=== PATIENT | female | born 1985 | race Caucasian/White ===

== ENCOUNTER 2018-11-02 16:01 | Emergency (ER) | payer SELFPAY ==
--- NOTE | 2018-11-02 16:30 | ER Document Report ---
ED General - General Chief Complaint: Shortness Of Breath Stated Complaint: DIFFICULTY BREATHING Time Seen by Provider: 11/02/18 16:07 Mode of Arrival: Ambulatory Information source: Patient Notes: 33-year-old female with depression, anxiety, hypertension, hypothyroidism and a [id number] smoking history presents with complaint of cough and shortness of breath for 3 weeks with worsening over the last 3 days. Patient states that she has had a persistent nonproductive cough. She admits to chills, sweats. Patient has associated headache with coughing only. She describes chest tightness. She denies history of PE, DVT, recent travel, recent surgery, calf swelling, estrogen use, cancer history. Patient did receive a DuoNeb and 4 albuterol treatments prior to arrival as well as Solu-Medrol. She states that she feels much better now. She states she was not able to speak initially. TRAVEL OUTSIDE OF THE [place] IN LAST 30 DAYS: No - HPI Onset: Other Onset/Duration: Gradual, Persistent, Worse Quality of pain: Burning Severity: Mild Associated symptoms: Body/muscle aches, Chest pain - With coughing only, Productive cough, Headache - With coughing only, Sinus pain/drainage, Shortness of breath. denies: Fever, Hurts to breath, Leg swelling, Nausea, Vomiting Exacerbated by: Coughing Relieved by: Denies Similar symptoms previously: Yes Recently seen / treated by doctor: No - Related Data Allergies/Adverse Reactions: No Known Allergies Allergy (Unverified 01/26/11 11:26) Past Medical History - General Information source: Patient, [facility] Records - Social History Smoking Status: Current Every Day Smoker Cigarette use (# per day): Yes - 10 Smoking Education Provided: Yes - Smoking cessation counseling was provided for 4 minutes at the bedside Frequency of alcohol use: Occasional Drug Abuse: None Lives with: Spouse/Significant other Family History: Reviewed & Not Pertinent Patient has suicidal ideation: No Patient has homicidal ideation: No Endocrine Medical History: Reports: Hx Hypothyroidism Past Surgical History: Reports: Hx Section - x2 - Immunizations Hx Diphtheria, Pertussis, Tetanus Vaccination: Yes Review of Systems - Review of Systems Notes: REVIEW OF SYSTEMS: CONSTITUTIONAL : Denies fever, chills, or sweats. Denies recent illness. Denies weight loss, recent hospitalizations. EENT: Denies visual changes, eye pain. Denies sore throat, oral lesions, difficulty swallowing. CARDIOVASCULAR: Denies palpitations. Denies lower extremity edema. RESPIRATORY: + Cough, shortness of breath, wheezing. GASTROINTESTINAL: Denies abdominal pain or distention. Denies nausea, vomit ing, or diarrhea. Denies blood in vomitus, stools, or per rectum. Denies black, tarry stools. Denies constipation. GENITOURINARY: Denies difficulty urinating, painful urination, frequency, bloo d in urine, or vaginal discharge. MUSCULOSKELETAL: Denies back or neck pain or stiffness. Denies joint pain or swelling. SKIN: Denies rash, lesions or sores. HEMATOLOGIC : Denies easy bruising or bleeding. LYMPHATIC: Denies swollen glands. NEUROLOGICAL: Denies confusion or altered mental status. Denies loss of consciousness. Denies dizziness or lightheadedness. Denies weakness or par alysis. Denies problems difficulty with ambulation, slurred speech. Denies sensory loss, numbness, or tingling. Denies seizures. PSYCHIATRIC: Denies anxiety or stress. Denies depression, suicidal ideation, or homicidal ideation. Denies visual or auditory hallucinations. Physical Exam - Vital signs Vitals: Temp Pulse Resp BP Pulse Ox 98.5 F 90 15 135/96 H 94 11/02/18 16:07 11/02/18 16:07 11/02/18 16:07 11/02/18 16:07 11/02/18 16:07 - Notes Notes: PHYSICAL EXAMINATION: GENERAL: Well-appearing, well-nourished and in no acute distress. HEAD: Atraumatic, normocephalic. EYES: Pupils equal round and reactive to light, extraocular movements intact, conjunctiva are normal. ENT: Nares patent, oropharynx clear without exudates. Moist mucous membranes. NECK: Normal range of motion, supple without lymphadenopathy LUNGS: Diffuse wheezing in all lung prasad. No accessory muscle use, able to speak in full sentences. No hypoxia. Reports improvement after receiving breathing treatments. HEART: Regular rate and rhythm without murmurs ABDOMEN: Soft, nontender, nondistended abdomen. No guarding, no rebound. No masses appreciated. Female : deferred Musculoskeletal: Normal range of motion, no pitting or edema. No cyanosis. NEUROLOGICAL: Cranial nerves grossly intact. Normal speech, normal gait. Normal sensory, motor exams PSYCH: Normal mood, normal affect. SKIN: Warm, Dry, normal turgor, no rashes or lesions noted. Course - Re-evaluation Re-evalutation: 11/02/18 23:44 Chest X-Ray 11/02/18 16:23 IMPRESSION: NO SIGNIFICANT RADIOGRAPHIC FINDING IN THE CHEST. Temp Pulse Resp BP Pulse Ox 98.4 F 84 15 130/83 H 95 11/02/18 17:53 11/02/18 17:53 11/02/18 17:53 11/02/18 17:53 11/02/18 17:53 33-year-old female with a 20+ years smoking history presents with 3 weeks of cough and shortness of breath that worsened over the last 3 days. Patient states that just prior to arrival she became very short of breath unable to speak in full sentences which prompted her to call EMS. Prior to arrival patient received a DuoNeb and 3 albuterol treatments as well as Solu-Medrol. Upon my exam patient states that she is feeling much better. Lung exam is significant for diffuse wheezing. Patient is not retracting, hypoxic or tachycardic. She is in no acute distress. Previous medical records and nursing notes reviewed. Chest x-ray obtained and showed no significant findings. Patient has undiagnosed COPD based on smoking history and exam. Because of patient's prolonged cough, recent increase in sputum production I will place patient on doxycycline, prednisone. And albuterol inhaler was administered to the patient. Smoking cessation advised. Patient was evaluated and treated as appropriate for the patient's presenting symptoms and complaint, with consideration of any critical or life threatening conditions that may be associated with their obtained history and exam as noted above. All results were discussed with patient. Patient provided the opportunity to ask questions, and express concerns. Patient was educated on treatments based on their presumed diagnosis as noted above. At this time we will discharge the patient with return precautions and follow-up recommendations. Verbal discharge instructions given a the bedside. Medication warnings reviewed. Patient is in agreement with this plan and has verbalized understanding of return precautions. After careful consideration I feel that that patient can be safely discharged from the emergency department, they were advised to followup with a primary care physician in 2-3 days. Dictation on this chart was performed using voice recognition software and may result in unintended grammatical, spelling, syntax or errors. 11/03/18 00:02 - Vital Signs Vital signs: Temp Pulse Resp BP Pulse Ox 98.4 F 84 15 130/83 H 95 11/02/18 17:53 11/02/18 17:53 11/02/18 17:53 11/02/18 17:53 11/02/18 17:53 - Diagnostic Test Radiology reviewed: Image reviewed, Reports reviewed Discharge - Discharge Clinical Impression: Bronchitis, COPD exacerbation, Tobacco use Hypertension Qualifiers: Hypertension type: unspecified Qualified Code(s): I10 - Essential (primary) hypertension Condition: Good Disposition: HOME, SELF-CARE Instructions: Bronchitis With Bronchospasm (Wheezing) ([facility]) Additional Instructions: You were seen for symptoms most consistent with bronchitis. This can take up to 12 weeks to fully resolve. This is generally due to a viral infection. Please follow-up with your primary doctor in the next 2-3 days. Return if you develop worsening cough, vomiting, fever >100.4, pass out, begin coughing blood, or have any other symptoms that are concerning to you. Please use the medications prescribed today as directed. Prescriptions: Chlorpheniramine/Dextromethorp [Coricidin Hbp Cough & Cold Tab] 1 each PO Q12H #24 tablet Doxycycline Hyclate 100 mg PO BID #14 capsule Prednisone [Deltasone 20 mg Tablet] 2 tab PO DAILY 5 Days #10 tablet Forms: Smoking Cessation Education, Elevated Blood Pressure Referrals: MARVEL LUGO MD [NO LOCAL MD] - Follow up as needed
--- NOTE | 2018-11-02 17:10 | RADIOLOGY REPORT (SQ) ---
EXAM DESCRIPTION: CHEST 2 VIEWS COMPLETED DATE/TIME: 11/02/2018 4:55 pm REASON FOR STUDY: Short of breath COMPARISON: 2015. TECHNIQUE: Frontal and lateral radiographic views of the chest acquired. NUMBER OF VIEWS: Two view. LIMITATIONS: None. FINDINGS: LUNGS AND PLEURA: No opacities, masses or pneumothorax. No pleural effusion. MEDIASTINUM AND HILAR STRUCTURES: No masses or contour abnormalities. HEART AND VASCULAR STRUCTURES: Heart normal size. No evidence for failure. BONES: No acute findings. HARDWARE: None in the chest. OTHER: No other significant finding. IMPRESSION: NO SIGNIFICANT RADIOGRAPHIC FINDING IN THE CHEST. TECHNICAL DOCUMENTATION: JOB ID: [id number] [employer]- All Rights Reserved Reading location - IP/workstation name: [email or web address]
[2018-11-02] MEDS ORDERED: ALBUTEROL SULFATE HFA (90 MCG/PUFF) 8 GM MDI (1 MDI/ER DISP) IH PRN (17:30)
[2018-11-02] MEDS ORDERED: DOXYCYCLINE HYCLATE 100 MG TABLET PO ONE (17:36)
[2018-11-02 17:59] VITALS: BP 130/83
== END 2018-11-02 17:53 | disposition home or self-care (01) ==
LOC: ER 16:01
DX: J44.1 Chronic obstructive pulmonary disease with (acute) exacerbation (principal); J40 Bronchitis, not specified as acute or chronic; R06.02 Shortness of breath; R05 Cough; I10 Essential (primary) hypertension; M79.10 Myalgia, unspecified site; R68.83 Chills (without fever); R61 Generalized hyperhidrosis; R51 Headache; R07.89 Other chest pain; J34.89 Other specified disorders of nose and nasal sinuses; F17.210 Nicotine dependence, cigarettes, uncomplicated; Z71.6 Tobacco abuse counseling
CPT/HCPCS: 99406; 99285; 71046; J3490

== ENCOUNTER 2018-11-22 18:03 | Inpatient (IN) | payer SELFPAY ==
[2018-11-22] MEDS ORDERED: IPRATROPIUM/ALBUTEROL 0.5-2.5 MG/3 ML AMPUL NEB ONE (18:43)
[2018-11-22] MEDS ORDERED: METHYLPREDNISOLONE INJ 125 MG/2 ML SDV IV ONE (18:43)
[2018-11-22] MEDS ORDERED: NORMAL SALINE 1000 ML 1,000 ML IV ONE (18:43)
--- NOTE | 2018-11-22 18:56 | ER Document Report ---
ED General - General Chief Complaint: Breathing Difficulty Stated Complaint: DIFFICULTY BREATHING Time Seen by Provider: 11/22/18 18:20 Mode of Arrival: Ambulatory Information source: Patient TRAVEL OUTSIDE OF THE [place] IN LAST 30 DAYS: No - HPI Patient complains to provider of: Shortness of breath Onset: Other - 33-year-old female that presents for evaluation of shortness of breath which she has had for the last several weeks she notes she was seen for previously treated with steroids as well as an antibiotic with a slight imp rovement in her symptoms for 3 days and then much worsening of her symptoms thereafter. Nothing seemed to make it better since then his pain getting worse with time. She never had anything like this in the past, does endorse some chest tightness associated with it, denies any abdominal pain, diarrhea constipation dysuria or emesis. Does not believe that she could be . Is an everyday smoker but has smoked much less over the last 3 weeks. - Related Data Allergies/Adverse Reactions: No Known Allergies Allergy (Unverified 01/26/11 11:26) Past Medical History - General Information source: Patient - Social History Smoking Status: Current Every Day Smoker Frequency of alcohol use: None Drug Abuse: None Family History: Reviewed & Not Pertinent Patient has suicidal ideation: No Patient has homicidal ideation: No Endocrine Medical History: Reports: Hx Hypothyroidism Renal/ Medical History: Denies: Hx Peritoneal Dialysis Psychiatric Medical History: Reports: Hx Depression Past Surgical History: Reports: Hx Section - x2 - Immunizations Hx Diphtheria, Pertussis, Tetanus Vaccination: Yes Review of Systems - Review of Systems -: Yes All other systems reviewed and negative Physical Exam - Vital signs Vitals: Temp Resp BP Pulse Ox 97.7 F 16 129/96 H 89 L 11/22/18 18:11 11/22/18 18:11 11/22/18 18:11 11/22/18 18:11 - General General appearance: Alert, Anxious In distress: Mild - HEENT Head: Normocephalic Eyes: Normal Conjunctiva: Normal Cornea: Normal Extraocular movements intact: Yes Eyelashes: Normal Pupils: PERRL - Respiratory Respiratory status: Tachypnea Chest status: Nontender Breath sounds: Wheezing Chest palpation: Normal - Cardiovascular Rhythm: Regular Heart sounds: Normal auscultation - Abdominal Inspection: Normal Distension: No distension Bowel sounds: Normal Tenderness: Nontender Organomegaly: No organomegaly - Back Back: Normal, Nontender - Extremities General upper extremity: Normal inspection, Nontender, Normal color, Normal ROM, Normal temperature General lower extremity: Normal inspection, Nontender, Normal color, Normal ROM, Normal temperature, Normal weight bearing. No: Xavi's sign - Neurological Neuro grossly intact: Yes Cognition: Normal Orientation: AAOx4 Acme Coma Scale Eye Opening: Spontaneous Eric Coma Scale Verbal: Oriented Reic Coma Scale Motor: Obeys Commands Acme Coma Scale Total: 15 Speech: Normal Motor strength normal: LUE, RUE, LLE, RLE Sensory: Normal - Psychological Associated symptoms: Normal affect, Normal mood Course - Re-evaluation Re-evalutation: 11/22/18 21:53 33-year-old woman with wheezing who presents for the second time in the last 3 weeks. On arrival she was hypoxic with marked tachypnea, she was placed on nasal cannula with an improvement in her oxygen saturation of 92%. She continued to have wheezing and shortness of breath and was started on a steroid as well as given a nebulization, she continued to demonstrate some tachypnea and wheezing thereafter. A broad workup was undertaken including x-ray, EKG, troponin. Patient with no obvious pneumonia on x-ray. Patient with no obvious evidence to suggest pulmonary embolism elsewhere. Venous blood gas does demonstrate acidosis with hypercarbia. Patient has an elevated bicarb suggestive of a chronic retention over the last 3 weeks probably for this patient in addition to an acute exacerbation. We will initiate treatment with magnesium for persistent wheezing another nebulization and will obtain a CTA of the chest for possible chronic thromboembolic disease and underlying cause of her worsening shortness of breath . She continues to require 2 L of nasal cannula to maintain an appropriate saturation. Have contacted the on-call hospitalist Dr. Castano after an extensive discussion with the patient and her mother about treatment options. They would prefer to stay. I do believe that this patient would benefit from inpatient observation monitoring reassessment administration of nebulization and steroids. We will plan to give patient a dose of her home propranolol as well as Celexa and Xanax. - Vital Signs Vital signs: Temp Pulse Resp BP Pulse Ox 97.7 F 12 128/79 H 93 11/22/18 18:11 11/22/18 22:00 11/22/18 21:01 11/22/18 22:00 - Laboratory Result Diagrams: 11/22/18 18:30 11/22/18 18:30 Laboratory results interpreted by me: 11/22/18 11/22/18 11/22/18 18:30 18:30 19:50 Eosinophils % 12.9 H Absolute Eosinophils 1.2 H VBG pH 7.27 L VBG pCO2 78.4 H* VBG HCO3 35.0 H Carbon Dioxide 33 H Glucose 124 H Discharge - Discharge Clinical Impression: Wheezing, Shortness of breath, Hypoxia, Hypercarbia Condition: Stable Disposition: ADMITTED INPATIENT Admitting Provider: Hospitalist Unit Admitted: Telemetry
--- NOTE | 2018-11-22 19:03 | RADIOLOGY REPORT (SQ) ---
EXAM DESCRIPTION: CHEST SINGLE VIEW COMPLETED DATE/TIME: 11/22/2018 6:55 pm REASON FOR STUDY: Difficulty breathing COMPARISON: 11/02/2018 EXAM PARAMETERS: NUMBER OF VIEWS: One view. TECHNIQUE: Single frontal radiographic view of the chest acquired. RADIATION DOSE: NA LIMITATIONS: None. FINDINGS: LUNGS AND PLEURA: No opacities, masses or pneumothorax. No pleural effusion. MEDIASTINUM AND HILAR STRUCTURES: No masses. Contour normal. HEART AND VASCULAR STRUCTURES: Heart normal in size. Normal vasculature. BONES: No acute findings. HARDWARE: None in the chest. OTHER: No other significant finding. IMPRESSION: NO ACUTE RADIOGRAPHIC FINDING IN THE CHEST. TECHNICAL DOCUMENTATION: JOB ID: [id number] [employer]- All Rights Reserved Reading location - IP/workstation name: [email or web address]
[2018-11-22 19:19] LABS: ABSOLUTE BASOPHILS # (AUTO) 0.1 10^3/uL (0.0-0.2); ABSOLUTE EOSINOPHILS # (AUTO) 1.2 10^3/uL (0.0-0.6); ABSOLUTE LYMPHOCYTES (AUTO) 2.4 10^3/uL (0.5-4.7); ABSOLUTE MONOCYTES (AUTO) 0.5 10^3/uL (0.1-1.4); ABSOLUTE NEUT (AUTO) 4.8 10^3/uL (1.7-8.2); BASOPHILS % (AUTO) 0.8 % (0-2); EOSINOPHILS % (AUTO) 12.9 % (0-6); HEMATOCRIT 42.4 % (36.0-47.0); HEMOGLOBIN 14.2 g/dL (12.0-15.5); MEAN CORPUSCULAR HEMOGLOBIN 30.1 pg (27.0-33.4); MEAN CORPUSCULAR HGB CONC 33.5 g/dL (32.0-36.0); MEAN CORPUSCULAR VOLUME 90 fl (80-97); MONOCYTES % (AUTO) 5.6 % (3-13); PLATELET COUNT 297 10^3/uL (150-450); RED BLOOD COUNT 4.72 10^6/uL (3.72-5.28); RED CELL DISTRIBUTION WIDTH 13.5 % (11.5-14.0); SEGMENTED NEUTROPHILS % (AUTO) 53.7 % (42-78); TOTAL CELLS COUNTED % (AUTO) 100 %; WHITE BLOOD COUNT 8.9 10^3/uL (4.0-10.5)
[2018-11-22 19:22] LABS: ALANINE AMINOTRANSFERASE 24 U/L (9-52); ALKALINE PHOSPHATASE 74 U/L (38-126); ANION GAP 5 (5-19); ASPARTATE AMINO TRANSFERASE 18 U/L (14-36); BILIRUBIN,DIRECT 0.4 mg/dL (0.0-0.4); BILIRUBIN,TOTAL 0.4 mg/dL (0.2-1.3); BLOOD UREA NITROGEN 12 mg/dL (7-20); CALCIUM 8.6 mg/dL (8.4-10.2); CARBON DIOXIDE 33 mmol/L (22-30); CHLORIDE 100 mmol/L (98-107); CREATINE KINASE 39 U/L (30-135); GLUCOSE 124 mg/dL (75-110); POTASSIUM 4.1 mmol/L (3.6-5.0); TOTAL PROTEIN 6.7 g/dL (6.3-8.2)
[2018-11-22 19:33] LABS: NT PRO BNP 21 pg/mL (<125)
[2018-11-22 19:40] LABS: TROPONIN I < 0.012 ng/mL
[2018-11-22 20:00] LABS: VENOUS BLOOD BASE EXCESS 5.1 mmol/L; VENOUS BLOOD PH 7.27 (7.30-7.42)
[2018-11-22 20:04] LABS: VENOUS BLOOD PCO2 78.4 mmHg (35-63)
[2018-11-22] MEDS ORDERED: ALBUTEROL SULFATE 0.083% NEB 2.5 MG/3 ML AMPUL NEB ONE (21:12)
--- NOTE | 2018-11-22 21:36 | EKG REPORT ---
SEVERITY:- BORDERLINE ECG - SINUS TACHYCARDIA BORDERLINE T ABNORMALITIES, INFERIOR LEADS : Confirmed by: Romina Gomez MD 22-Nov-2018 21:35:32
[2018-11-22] MEDS: MAGNESIUM SULFATE/D5W 1 GM/100 ML RTUPB IV SCH ×2 (21:38→22:01)
--- NOTE | 2018-11-22 22:52 | RADIOLOGY REPORT (SQ) ---
EXAM DESCRIPTION: CT CHEST ANGIOGRAPHY WITHOUT THEN WITH IV CONTRAST, three-dimensional reconstructions COMPLETED DATE/TME: 11/22/2018 21:09 CLINICAL HISTORY: 33 years, Female, diff breathing, concern for PE This exam was performed according to our departmental dose-optimization program which includes automated exposure control, adjustment of the mA and/or kVp according to patient size and/or use of iterative reconstruction technique where applicable. FINDINGS: Pulmonary arteries are well opacified. No significant filling defects in the pulmonary arterial tree to suggest acute pulmonary embolism. Aorta is within normal limits with no aneurysm or dissection. No significant mediastinal, hilar or axillary lymphadenopathy. No pleural or pericardial effusions. Visualized upper abdominal organs are within normal limits. Evaluation of the lung parenchyma demonstrates trachea and major airways to be patent. No suspicious lung nodules or masses. No consolidations to suggest pneumonia. Minimally displaced left posterior 11th rib fracture. IMPRESSION: Left 11th rib fracture. No pneumothorax. No pulmonary embolism.
[2018-11-22] MEDS ORDERED: PROPRANOLOL HCL 10 MG TABLET PO ONE (23:15)
[2018-11-22] MEDS ORDERED: CITALOPRAM HYDROBROMIDE 20 MG TABLET PO ONE (23:15)
[2018-11-22] MEDS ORDERED: ALPRAZOLAM 0.5 MG TABLET PO ONE (23:15)
[2018-11-22] MEDS ORDERED: ONDANSETRON HCL INJ/PF 4 MG/2 ML SDV IV PRN (23:50)
[2018-11-22] MEDS ORDERED: ONDANSETRON 4 MG TAB.RAPDIS PO PRN (23:50)
[2018-11-22] MEDS ORDERED: MAG HYDROX/AL HYDROX/SIMETH SUSP 30 ML UDCUP PO PRN (23:50)
[2018-11-22] MEDS ORDERED: MAGNESIUM HYDROXIDE SUSP 30 ML UDCUP PO PRN (23:50)
[2018-11-22] MEDS ORDERED: NORMAL SALINE 1000 ML 1,000 ML IV PRN (23:50)
[2018-11-22] MEDS ORDERED: PROPRANOLOL HCL 10 MG TABLET ONE (23:51)
[2018-11-22] MEDS ORDERED: ACETAMINOPHEN 325 MG TABLET PO PRN (23:56)
[2018-11-22] MEDS ORDERED: NALBUPHINE HCL INJ 10 MG/1 ML AMPULE IV PRN (23:56)
[2018-11-22] MEDS ORDERED: ALBUTEROL SULFATE 0.083% NEB 2.5 MG/3 ML AMPUL NEB PRN (23:56)
[2018-11-22] MEDS ORDERED: NICOTINE 21 MG/24 HR PATCH.TD24 TD PRN (23:56)
[2018-11-22] MEDS ORDERED: GUAIFENESIN/D-METHORPHAN (200-20 MG) SYRUP 10 ML PO PRN (23:58)
[2018-11-23] MEDS ORDERED: METHYLPREDNISOLONE INJ 40 MG/1 ML SDV IV ONE (00:40)
--- NOTE | 2018-11-23 03:44 | PDOC H&P ---
History of Present Illness Admission Date/PCP: 11/22/18 23:44 Patient complains of: Dyspnea History of Present Illness: ROSALINA ANN is a 33 year old female who presented to the emergency room with acute onset dyspnea. She admits that she awoke from a nap on the late afternoon of the date of admission with severe dyspnea and wheezing. She admits to the associated nonproductive cough and moderate to severe intermittent sharp pains in her anterior chest on both sides. She further admits that she has been having respiratory difficulty for the last month or so with wheezing and dyspnea as well as the same nonproductive cough and chest pains. She was treated in this emergency room for these symptoms about 2 weeks ago. She did have resolution of her symptoms and had been feeling well for the last 2 or 3 days prior to this episode. She denies any other prior similar episodes and has not identified any aggravating or ameliorating factors for her dyspnea though she does admit that she had been smoking until approximately 3 weeks ago when she could no longer smoke because it irritated her airway. In the emergency room she was found to be hypoxic and to have severe wheezing with decreased air movement on physical exam. She was noted to be mildly hypercapnic on an initial venous blood gas. Her chest x-ray showed no acute pathology however she was noted to have an acute fracture of her left 11th rib on CTA evaluation. Because of her persistent hypoxia despite treatment in the emergency room she was admitted for further care. Past Medical History Cardiac Medical History: Denies: Coronary Artery Disease, DVT, Hyperlipidema, Hypertension, Pulmonary Embolism Pulmonary Medical History: Reports: Asthma, Chronic Obstructive Pulmonary Disease (COPD) Denies: Respiratory Failure EENT Medical History: Reports: None Neurological Medical History: Denies: Multiple Sclerosis, Seizures Endocrine Medical History: Reports: Hypothyroidism, Obesity Denies: Diabetes Mellitus Type 1, Diabetes Mellitus Type 2 Renal/ Medical History: Denies: Chronic Kidney Disease, Nephrolithiasis Malignancy Medical History: Reports: None GI Medical History: Denies: Cirrhosis, Hepatitis Musculoskeltal Medical History: Denies: Arthritis, Fibromyalgia Skin Medical History: Denies: Eczema, Psoriasis Psychiatric Medical History: Reports: Depression, Tobacco Dependency Denies: Alcohol Dependency, Substance Abuse Traumatic Medical History: Reports: None Hematology: Denies: Anemia, Bleeding Tendencies Infectious Medical History: Reports: None Past Surgical History Past Surgical History: Reports: Section - x2 Social History Smoking Status: Current Every Day Smoker - Advance Directive Resuscitation Status: Full Code Surrogate healthcare decision maker:: Mother Family History Family History: CAD, COPD, DM, Hypertension, Malignancy, Other - Chronic kidney disease Parental Family History Reviewed: Yes Children Family History Reviewed: No Sibling(s) Family History Reviewed.: Yes Medication/Allergy Home Medications: Hydrocodone Bit/Acetaminophen [Vicodin 5-500 mg Tablet] 1 - 2 tab PO ASDIR PRN #15 tablet 05/04/13 Ibuprofen [Motrin 800 Mg Tablet] 800 mg PO TID PRN #30 tablet 05/04/13 Hydrocodone/Acetaminophen [[place] 5-325 mg Tablet] 1 tab PO Q6 #10 tablet 12/27/15 Prednisone [Deltasone 20 mg Tablet] 3 tab PO DAILY 5 Days tablet 12/27/15 Chlorpheniramine/Dextromethorp [Coricidin Hbp Cough & Cold Tab] 1 each PO Q12H #24 tablet 11/02/18 Doxycycline Hyclate 100 mg PO BID #14 capsule 11/02/18 Prednisone [Deltasone 20 mg Tablet] 2 tab PO DAILY 5 Days #10 tablet 11/02/18 Allergies/Adverse Reactions: No Known Allergies Allergy (Unverified 01/26/11 11:26) Review of Systems Constitutional: ABSENT: chills, fever(s) Eyes: ABSENT: visual disturbances, other - Ocular pain Ears: ABSENT: hearing changes, other - Ear pain Nose, Mouth, and Throat: ABSENT: mouth pain, sore throat Cardiovascular: PRESENT: as per HPI, chest pain, dyspnea on exertion. ABSENT: edema, orthropnea, palpitations Respiratory: PRESENT: as per HPI, cough, dyspnea. ABSENT: hemoptysis, sputum Gastrointestinal: ABSENT: abdominal pain, constipation, diarrhea, dysphagia, nausea, vomiting Genitourinary: ABSENT: dysuria, hematuria Integumentary: ABSENT: pruritus, rash Neurological: ABSENT: confusion, convulsions, memory loss, tremor(s) Psychiatric: ABSENT: anxiety, depression Endocrine: ABSENT: cold intolerance, heat intolerance Hematologic/Lymphatic: ABSENT: easy bleeding, easy bruising Physical Exam Vital Signs: Temp Pulse Resp BP Pulse Ox 97.7 F 12 128/79 H 93 11/22/18 18:11 11/22/18 22:00 11/22/18 21:01 11/22/18 22:00 Intake & Output 11/20/18 11/21/18 11/22/18 23:59 23:59 23:59 Intake Total 1200 Balance 1200 Weight 141.521 kg General appearance: PRESENT: cooperative, mild distress - Secondary to wheezing and dyspnea, morbidly obese Head exam: PRESENT: atraumatic, normocephalic Eye exam: PRESENT: conjunctiva pink, EOMI. ABSENT: scleral icterus Ear exam: PRESENT: normal external ear exam. ABSENT: bleeding, drainage Mouth exam: PRESENT: dry mucosa, neck supple Neck exam: ABSENT: JVD, thyromegaly, tracheal deviation Respiratory exam: PRESENT: accessory muscle use - Moderate use of accessory musculature of breathing with increased work of breathing noted., decreased breath sounds - Moderately decreased breath sounds throughout all prasad with poor air movement noted, prolonged expiratory phas - Moderately prolonged expiratory phase noted throughout all prasad, symmetrical, wheezes - Expiratory wheezes present in all prasad. Cardiovascular exam: PRESENT: RRR. ABSENT: clicks, gallop, rubs Pulses: PRESENT: normal radial pulses, normal dorsalis pedis pul GI/Abdominal exam: PRESENT: normal bowel sounds, soft Rectal exam: PRESENT: deferred Extremities exam: ABSENT: joint swelling, pedal edema Musculoskeletal exam: PRESENT: full ROM, normal inspection Neurological exam: PRESENT: alert, oriented to person, oriented to place, oriented to time, oriented to situation, CN II-XII grossly intact. ABSENT: motor sensory deficit Psychiatric exam: PRESENT: appropriate affect, normal mood Skin exam: PRESENT: intact, pallor, warm. ABSENT: jaundice, rash, urticaria Results Laboratory Results: 11/22/18 18:30 11/22/18 18:30 11/22/18 11/22/18 11/22/18 18:30 18:30 19:50 WBC 8.9 RBC 4.72 Hgb 14.2 Hct 42.4 MCV 90 MCH 30.1 MCHC 33.5 RDW 13.5 Plt Count 297 Seg Neutrophils % 53.7 Lymphocytes % 27.0 Monocytes % 5.6 Eosinophils % 12.9 H Basophils % 0.8 Absolute Neutrophils 4.8 Absolute Lymphocytes 2.4 Absolute Monocytes 0.5 Absolute Eosinophils 1.2 H Absolute Basophils 0.1 VBG pH VBG pCO2 VBG HCO3 VBG Base Excess Sodium 138.0 Potassium 4.1 Chloride 100 Carbon Dioxide 33 H Anion Gap 5 BUN 12 Creatinine 0.77 Est GFR ( Amer) > 60 Est GFR (Non-Af Amer) > 60 Glucose 124 H Lactic Acid 1.0 Calcium 8.6 Total Bilirubin 0.4 AST 18 ALT 24 Alkaline Phosphatase 74 Total Protein 6.7 Albumin 4.0 11/22/18 19:50 WBC RBC Hgb Hct MCV MCH MCHC RDW Plt Count Seg Neutrophils % Lymphocytes % Monocytes % Eosinophils % Basophils % Absolute Neutrophils Absolute Lymphocytes Absolute Monocytes Absolute Eosinophils Absolute Basophils VBG pH 7.27 L VBG pCO2 78.4 H* VBG HCO3 35.0 H VBG Base Excess 5.1 Sodium Potassium Chloride Carbon Dioxide Anion Gap BUN Creatinine Est GFR ( Amer) Est GFR (Non-Af Amer) Glucose Lactic Acid Calcium Total Bilirubin AST ALT Alkaline Phosphatase Total Protein Albumin 11/22/18 11/22/18 18:30 18:30 Creatine Kinase 39 Troponin I < 0.012 NT-Pro-B Natriuret Pep 21 Impressions: Chest X-Ray 11/22/18 00:00 IMPRESSION: NO ACUTE RADIOGRAPHIC FINDING IN THE CHEST. Chest/Abdomen CTA 11/22/18 21:09 IMPRESSION: Left 11th rib fracture. No pneumothorax. No pulmonary embolism. Assessment & Plan - Diagnosis (1) Acute respiratory failure with hypoxia and hypercapnia Is this a current diagnosis for this admission?: Yes Plan: Patient will be treated with supplemental oxygen via nasal cannula and consideration of CPAP and/or BiPAP will be given if the patient's respiratory status declines. (2) Acute exacerbation of COPD with asthma Is this a current diagnosis for this admission?: Yes Plan: Patient be treated with an aggressive pulmonary toilet utilizing Xopenex, Atrovent, Pulmicort and albuterol nebulizers as well as intravenous Solu-Medrol steroid therapy. (3) Morbid obesity with BMI of 45.0-49.9, adult Is this a current diagnosis for this admission?: Yes Plan: Patient will be seen by dietitian for consultation to establish appropriate diet and lifestyle changes to help to improve her overall medical health. (4) Tobacco use disorder, moderate, in early remission, dependence Is this a current diagnosis for this admission?: Yes Plan: Smoking cessation is advised. Smoking cessation counseling is given. Nicotine replacement patch is available to the patient. - Time Time Spent: 30 to 50 Minutes Critical Time spent with patient: Less than 15 minutes Smoking Cessation Education: 3 to 10 minutes Medications reviewed and adjusted accordingly: Yes Anticipated discharge: Home - Inpatient Certification Medical Necessity: Significant Comorbidiites Make Outpatient Treatment Too Risky, Need Close Monitoring Due to Risk of Patient Decompensation, Need for Neb ulizer Therapy and Monitoring of Response, Risk of Complication if Not Cared For in Hospital
[2018-11-23] MEDS ORDERED: IPRATROPIUM BROMIDE 0.02% NEB 0.5 MG/2.5 ML AMPUL NEB SCH ×2 (04:00)
[2018-11-23] MEDS ORDERED: LEVALBUTEROL HCL NEB 1.25 MG/3 ML AMPUL NEB SCH (04:00)
[2018-11-23 04:57] LABS: ABSOLUTE MONOCYTES (AUTO) 0.1 10^3/uL (0.1-1.4); ABSOLUTE NEUT (AUTO) 7.2 10^3/uL (1.7-8.2); BASOPHILS % (AUTO) 0.3 % (0-2); EOSINOPHILS % (AUTO) 0.1 % (0-6); HEMATOCRIT 40.9 % (36.0-47.0); HEMOGLOBIN 13.9 g/dL (12.0-15.5); LYMPHOCYTES % (AUTO) 11.6 % (13-45); MEAN CORPUSCULAR HEMOGLOBIN 30.8 pg (27.0-33.4); MEAN CORPUSCULAR HGB CONC 34.1 g/dL (32.0-36.0); MEAN CORPUSCULAR VOLUME 91 fl (80-97); MONOCYTES % (AUTO) 0.9 % (3-13); PLATELET COUNT 296 10^3/uL (150-450); RED BLOOD COUNT 4.52 10^6/uL (3.72-5.28); RED CELL DISTRIBUTION WIDTH 13.5 % (11.5-14.0); SEGMENTED NEUTROPHILS % (AUTO) 87.1 % (42-78); TOTAL CELLS COUNTED % (AUTO) 100 %; WHITE BLOOD COUNT 8.3 10^3/uL (4.0-10.5)
[2018-11-23 05:15] LABS: ANION GAP 5 (5-19); BLOOD UREA NITROGEN 13 mg/dL (7-20); CARBON DIOXIDE 30 mmol/L (22-30); CHLORIDE 102 mmol/L (98-107); CHOLESTEROL 213.99 mg/dL (0-200); GLUCOSE 161 mg/dL (75-110); POTASSIUM 4.6 mmol/L (3.6-5.0); SODIUM 137.3 mmol/L (137-145); TRIGLYCERIDES 45 mg/dL (<150)
[2018-11-23 05:26] LABS: DIRECT LDL 135 mg/dL (<100)
[2018-11-23 05:31] LABS: FREE T3 2.32 pg/mL (2.77-5.27); FREE T4 (FREE THYROXINE) 0.4 ng/dL (0.78-2.19)
[2018-11-23 05:45] LABS: THYROID STIMULATING HORMONE 12.5 uIU/mL (0.47-4.68)
[2018-11-23] MEDS: HEPARIN SOD (PORCINE) 5,000 UNIT/ML 1 ML SYRINGE SUBCUT SCH ×3 (07:36→22:20)
[2018-11-23] MEDS: LEVALBUTEROL HCL NEB 1.25 MG/3 ML AMPUL NEB SCH ×2 (08:32→16:25)
[2018-11-23] MEDS: BUDESONIDE NEB 0.5 MG/2 ML AMPUL NEB SCH ×2 (08:32→19:26)
[2018-11-23] MEDS: IPRATROPIUM BROMIDE 0.02% NEB 0.5 MG/2.5 ML AMPUL NEB SCH ×2 (08:32→16:25)
[2018-11-23] MEDS: FAMOTIDINE 20 MG TABLET PO SCH ×2 (09:20→22:20)
[2018-11-23] MEDS: DOCUSATE SODIUM 100 MG CAPSULE PO SCH ×2 (09:20→17:46)
[2018-11-23] MEDS: ALPRAZOLAM 0.5 MG TABLET PO PRN ×2 (15:37→22:22)
[2018-11-23] MEDS ORDERED: OXYMETAZOLINE HCL 0.05% NASAL SPRAY 15 ML BOTTLE NASL PRN (17:11)
--- NOTE | 2018-11-23 17:25 | PDOC PROGRESS REPORT ---
Subjective Progress Note for:: 11/23/18 Subjective:: ROSALINA ANN is a 33 year old female who presented to the emergency room with acute onset dyspnea. She admits that she awoke from a nap on the late afternoon of the date of admission with severe dyspnea and wheezing. She admits to the associated nonproductive cough and moderate to severe intermittent sharp pains in her anterior chest on both sides. She further admits that she has been having respiratory difficulty for the last month or so with wheezing and dyspnea as well as the same nonproductive cough and chest pains. She was treated in this emergency room for these symptoms about 2 weeks ago. She did have resolution of her symptoms and had been feeling well for the last 2 or 3 days prior to this episode. She denies any other prior similar episodes and has not identified any aggravating or ameliorating factors for her dyspnea though she does admit that she had been smoking until approximately 3 weeks ago when she could no longer smoke because it irritated her airway. In the emergency room she was found to be hypoxic and to have severe wheezing with decreased air movement on physical exam. She was noted to be mildly hypercapnic on an initial venous blood gas. Her chest x-ray showed no acute pathology however she was noted to have an acute fracture of her left 11th rib on CTA evaluation. Because of her persistent hypoxia despite treatment in the emergency room she was admitted for further care. Patient is stating she is feeling better since admission however she gets short of breath when she exerts herself. She still having pleuritic chest pain stating that 3 weeks ago she had a hip fracture due to excessive coughing. She denies having any fever, chills, nausea, vomiting, diarrhea or constipation. She is a heavy smoker has been smoking for the last 3 years. Reason For Visit: ACUTE EXACERBATION OF COPD WITH ACUTE HYPOXIC Physical Exam Vital Signs: Temp Pulse Resp BP Pulse Ox 97.6 F 105 H 14 133/86 H 94 11/23/18 05:00 11/23/18 16:25 11/23/18 16:25 11/23/18 12:01 11/23/18 16:25 Intake & Output 11/22/18 11/23/18 11/24/18 06:59 06:59 06:59 Intake Total 1200 Balance 1200 Weight 141.521 kg General appearance: PRESENT: morbidly obese Head exam: PRESENT: atraumatic, normocephalic Respiratory exam: PRESENT: prolonged expiratory phas, wheezes Cardiovascular exam: PRESENT: RRR. ABSENT: diastolic murmur, rubs, systolic murmur GI/Abdominal exam: PRESENT: normal bowel sounds, soft. ABSENT: distended, guarding, mass, organolmegaly, rebound, tenderness Extremities exam: PRESENT: full ROM. ABSENT: calf tenderness, clubbing, pedal edema Neurological exam: PRESENT: alert, awake, oriented to person, oriented to place, oriented to time, oriented to situation, CN II-XII grossly intact. ABSENT: motor sensory deficit Psychiatric exam: PRESENT: anxious Results Laboratory Results: 11/23/18 04:40 11/23/18 04:40 11/22/18 11/22/18 11/22/18 18:30 18:30 19:50 WBC 8.9 RBC 4.72 Hgb 14.2 Hct 42.4 MCV 90 MCH 30.1 MCHC 33.5 RDW 13.5 Plt Count 297 Seg Neutrophils % 53.7 Lymphocytes % 27.0 Monocytes % 5.6 Eosinophils % 12.9 H Basophils % 0.8 Absolute Neutrophils 4.8 Absolute Lymphocytes 2.4 Absolute Monocytes 0.5 Absolute Eosinophils 1.2 H Absolute Basophils 0.1 VBG pH VBG pCO2 VBG HCO3 VBG Base Excess Sodium 138.0 Potassium 4.1 Chloride 100 Carbon Dioxide 33 H Anion Gap 5 BUN 12 Creatinine 0.77 Est GFR ( Amer) > 60 Est GFR (Non-Af Amer) > 60 Glucose 124 H Lactic Acid 1.0 Calcium 8.6 Magnesium Total Bilirubin 0.4 AST 18 ALT 24 Alkaline Phosphatase 74 Total Protein 6.7 Albumin 4.0 Triglycerides Cholesterol LDL Cholesterol Direct VLDL Cholesterol HDL Cholesterol TSH Free T4 Free T3 pg/mL 11/22/18 11/23/18 11/23/18 19:50 04:40 04:40 WBC 8.3 RBC 4.52 Hgb 13.9 Hct 40.9 MCV 91 MCH 30.8 MCHC 34.1 RDW 13.5 Plt Count 296 Seg Neutrophils % 87.1 H Lymphocytes % 11.6 L Monocytes % 0.9 L Eosinophils % 0.1 Basophils % 0.3 Absolute Neutrophils 7.2 Absolute Lymphocytes 1.0 Absolute Monocytes 0.1 Absolute Eosinophils 0.0 Absolute Basophils 0.0 VBG pH 7.27 L VBG pCO2 78.4 H* VBG HCO3 35.0 H VBG Base Excess 5.1 Sodium 137.3 Potassium 4.6 Chloride 102 Carbon Dioxide 30 Anion Gap 5 BUN 13 Creatinine 0.85 Est GFR ( Amer) > 60 Est GFR (Non-Af Amer) > 60 Glucose 161 H Lactic Acid Calcium 9.0 Magnesium 2.0 Total Bilirubin AST ALT Alkaline Phosphatase Total Protein Albumin Triglycerides 45 Cholesterol 213.99 H LDL Cholesterol Direct 135 H VLDL Cholesterol 9.0 L HDL Cholesterol 59 TSH Free T4 Free T3 pg/mL 11/23/18 04:40 WBC RBC Hgb Hct MCV MCH MCHC RDW Plt Count Seg Neutrophils % Lymphocytes % Monocytes % Eosinophils % Basophils % Absolute Neutrophils Absolute Lymphocytes Absolute Monocytes Absolute Eosinophils Absolute Basophils VBG pH VBG pCO2 VBG HCO3 VBG Base Excess Sodium Potassium Chloride Carbon Dioxide Anion Gap BUN Creatinine Est GFR ( Amer) Est GFR (Non-Af Amer) Glucose Lactic Acid Calcium Magnesium Total Bilirubin AST ALT Alkaline Phosphatase Total Protein Albumin Triglycerides Cholesterol LDL Cholesterol Direct VLDL Cholesterol HDL Cholesterol TSH 12.50 H Free T4 0.40 L Free T3 pg/mL 2.32 L 11/22/18 11/22/18 18:30 18:30 Creatine Kinase 39 Troponin I < 0.012 NT-Pro-B Natriuret Pep 21 Impressions: Chest X-Ray 11/22/18 00:00 IMPRESSION: NO ACUTE RADIOGRAPHIC FINDING IN THE CHEST. Chest/Abdomen CTA 11/22/18 21:09 IMPRESSION: Left 11th rib fracture. No pneumothorax. No pulmonary embolism. Assessment & Plan - Diagnosis (1) Acute respiratory failure with hypoxia and hypercapnia Is this a current diagnosis for this admission?: Yes Plan: Secondary to COPD/asthma exacerbation. Continue supplemental oxygen, nebs, IV steroids, BiPAP. (2) Acute exacerbation of COPD with asthma Is this a current diagnosis for this admission?: Yes Plan: Problem #1. Outpatient pulmonary follow-up. (3) Morbid obesity with BMI of 45.0-49.9, adult Is this a current diagnosis for this admission?: Yes Plan: Advised on diet and lifestyle modification. (4) Tobacco use disorder, moderate, in early remission, dependence Is this a current diagnosis for this admission?: Yes Plan: Advised on smoking cessation. Start on nicotine replacement patch.
[2018-11-23] MEDS ORDERED: GUAIFENESIN SYRP 200 MG/10 ML UDC ONE (20:43)
[2018-11-23] MEDS: GUAIFENESIN/D-METHORPHAN (200-20 MG) SYRUP 10 ML PO SCH ×2 (20:50→22:18)
[2018-11-23] MEDS: METHYLPREDNISOLONE INJ 40 MG/1 ML SDV IV SCH (22:19)
[2018-11-24] MEDS: IPRATROPIUM BROMIDE 0.02% NEB 0.5 MG/2.5 ML AMPUL NEB SCH ×3 (00:06→16:00)
[2018-11-24] MEDS: LEVALBUTEROL HCL NEB 1.25 MG/3 ML AMPUL NEB SCH ×3 (00:06→16:00)
[2018-11-24] MEDS: HEPARIN SOD (PORCINE) 5,000 UNIT/ML 1 ML SYRINGE SUBCUT SCH ×3 (05:49→22:10)
[2018-11-24] MEDS: METHYLPREDNISOLONE INJ 40 MG/1 ML SDV IV SCH ×3 (05:49→22:32)
[2018-11-24 06:00] LABS: ABSOLUTE BASOPHILS # (AUTO) 0.1 10^3/uL (0.0-0.2); ABSOLUTE LYMPHOCYTES (AUTO) 1.3 10^3/uL (0.5-4.7); ABSOLUTE MONOCYTES (AUTO) 0.6 10^3/uL (0.1-1.4); ABSOLUTE NEUT (AUTO) 13.5 10^3/uL (1.7-8.2); BASOPHILS % (AUTO) 0.4 % (0-2); HEMATOCRIT 38.8 % (36.0-47.0); HEMOGLOBIN 13.1 g/dL (12.0-15.5); LYMPHOCYTES % (AUTO) 8.6 % (13-45); MEAN CORPUSCULAR HEMOGLOBIN 30.4 pg (27.0-33.4); MEAN CORPUSCULAR HGB CONC 33.7 g/dL (32.0-36.0); MEAN CORPUSCULAR VOLUME 90 fl (80-97); MONOCYTES % (AUTO) 3.8 % (3-13); PLATELET COUNT 280 10^3/uL (150-450); RED CELL DISTRIBUTION WIDTH 13.4 % (11.5-14.0); SEGMENTED NEUTROPHILS % (AUTO) 87.2 % (42-78); TOTAL CELLS COUNTED % (AUTO) 100 %; WHITE BLOOD COUNT 15.5 10^3/uL (4.0-10.5)
[2018-11-24] MEDS ORDERED: METHYLPREDNISOLONE INJ 40 MG/1 ML SDV IV SCH (06:00)
[2018-11-24 06:27] LABS: ALANINE AMINOTRANSFERASE 23 U/L (9-52); ALKALINE PHOSPHATASE 70 U/L (38-126); ANION GAP 8 (5-19); ASPARTATE AMINO TRANSFERASE 11 U/L (14-36); BILIRUBIN,DIRECT 0.3 mg/dL (0.0-0.4); BILIRUBIN,TOTAL 0.3 mg/dL (0.2-1.3); BLOOD UREA NITROGEN 12 mg/dL (7-20); CALCIUM 8.7 mg/dL (8.4-10.2); CARBON DIOXIDE 29 mmol/L (22-30); CHLORIDE 103 mmol/L (98-107); GLUCOSE 133 mg/dL (75-110); POTASSIUM 4.9 mmol/L (3.6-5.0); SODIUM 140.1 mmol/L (137-145); TOTAL PROTEIN 6.8 g/dL (6.3-8.2)
[2018-11-24] MEDS: BUDESONIDE NEB 0.5 MG/2 ML AMPUL NEB SCH ×2 (07:48→23:15)
[2018-11-24] MEDS: CITALOPRAM HYDROBROMIDE 20 MG TABLET PO SCH (09:22)
[2018-11-24] MEDS: FAMOTIDINE 20 MG TABLET PO SCH ×2 (09:22→22:31)
[2018-11-24] MEDS: DOCUSATE SODIUM 100 MG CAPSULE PO SCH ×2 (09:23→17:29)
[2018-11-24] MEDS ORDERED: (PENDING PHARMACY ID) (Citalopram Hydrobromide [Citalopram Hbr] 40 MG) PO SCH (10:00)
[2018-11-24] MEDS: GUAIFENESIN/D-METHORPHAN (200-20 MG) SYRUP 10 ML PO SCH ×4 (11:25→22:31)
--- NOTE | 2018-11-24 12:56 | PDOC PROGRESS REPORT ---
Subjective Progress Note for:: 11/24/18 Subjective:: ROSALINA ANN is a 33 year old female who presented to the emergency room with acute onset dyspnea. She admits that she awoke from a nap on the late afternoon of the date of admission with severe dyspnea and wheezing. She admits to the associated nonproductive cough and moderate to severe intermittent sharp pains in her anterior chest on both sides. She further admits that she has been having respiratory difficulty for the last month or so with wheezing and dyspnea as well as the same nonproductive cough and chest pains. She was treated in this emergency room for these symptoms about 2 weeks ago. She did have resolution of her symptoms and had been feeling well for the last 2 or 3 days prior to this episode. She denies any other prior similar episodes and has not identified any aggravating or ameliorating factors for her dyspnea though she does admit that she had been smoking until approximately 3 weeks ago when she could no longer smoke because it irritated her airway. In the emergency room she was found to be hypoxic and to have severe wheezing with decreased air movement on physical exam. She was noted to be mildly hypercapnic on an initial venous blood gas. Her chest x-ray showed no acute pathology however she was noted to have an acute fracture of her left 11th rib on CTA evaluation. Because of her persistent hypoxia despite treatment in the emergency room she was admitted for further care. 11/23/2018. Patient is stating she is feeling better since admission however she gets short of breath when she exerts herself. She still having pleuritic chest pain stating that 3 weeks ago she had a hip fracture due to excessive coughing. She denies having any fever, chills, nausea, vomiting, diarrhea or constipation. She is a heavy smoker has been smoking for the last 3 years. 11/24/2018. No acute events overnight. Patient has been saturating 97% on 2 L FiO2 28%. Overnight. Vitals have been within normal. CMP within normal limits except for WBC of 15.5 from 8.3 which could be secondary to IV steroids that she is receiving. Chest pain, shortness of breath and congestion has improved significantly since admission. Denies having any nausea, vomiting, diarrhea, constipation or any urinary symptoms. Reason For Visit: ACUTE EXACERBATION OF COPD WITH ACUTE HYPOXIC Physical Exam Vital Signs: Temp Pulse Resp BP Pulse Ox 98.6 F 77 16 131/67 H 97 11/24/18 11:57 11/24/18 11:57 11/24/18 11:57 11/24/18 11:57 11/24/18 11:57 Intake & Output 11/23/18 11/24/18 11/25/18 06:59 06:59 06:59 Intake Total 1200 266 Balance 1200 266 Weight 141.521 kg 141.8 kg General appearance: PRESENT: morbidly obese Head exam: PRESENT: atraumatic, normocephalic Respiratory exam: PRESENT: clear to auscultation erika, prolonged expiratory phas. ABSENT: rales, rhonchi, wheezes Cardiovascular exam: PRESENT: RRR. ABSENT: diastolic murmur, rubs, systolic murmur GI/Abdominal exam: PRESENT: normal bowel sounds, soft. ABSENT: distended, guarding, mass, organolmegaly, rebound, tenderness Neurological exam: PRESENT: alert, awake, oriented to person, oriented to place, oriented to time, oriented to situation, CN II-XII grossly intact. ABSENT: motor sensory deficit Psychiatric exam: PRESENT: anxious Results Laboratory Results: 11/24/18 05:19 11/24/18 05:19 11/24/18 11/24/18 11/24/18 05:19 05:19 05:19 WBC 15.5 H RBC 4.30 Hgb 13.1 Hct 38.8 MCV 90 MCH 30.4 MCHC 33.7 RDW 13.4 Plt Count 280 Seg Neutrophils % 87.2 H Lymphocytes % 8.6 L Monocytes % 3.8 Eosinophils % 0.0 Basophils % 0.4 Absolute Neutrophils 13.5 H Absolute Lymphocytes 1.3 Absolute Monocytes 0.6 Absolute Eosinophils 0.0 Absolute Basophils 0.1 Sodium 140.1 Potassium 4.9 Chloride 103 Carbon Dioxide 29 Anion Gap 8 BUN 12 Creatinine 0.66 Est GFR ( Amer) > 60 Est GFR (Non-Af Amer) > 60 Glucose 133 H Calcium 8.7 Magnesium 2.2 Total Bilirubin 0.3 AST 11 L ALT 23 Alkaline Phosphatase 70 Total Protein 6.8 Albumin 4.0 11/22/18 11/22/18 18:30 18:30 Creatine Kinase 39 Troponin I < 0.012 NT-Pro-B Natriuret Pep 21 Impressions: Chest X-Ray 11/22/18 00:00 IMPRESSION: NO ACUTE RADIOGRAPHIC FINDING IN THE CHEST. Chest/Abdomen CTA 11/22/18 21:09 IMPRESSION: Left 11th rib fracture. No pneumothorax. No pulmonary embolism. Assessment & Plan - Diagnosis (1) Acute respiratory failure with hypoxia and hypercapnia Is this a current diagnosis for this admission?: Yes Plan: Secondary to COPD/asthma exacerbation. Saturating 97% on 2 L FiO2 28%. Continue supplemental oxygen, nebs, IV steroids, as needed BiPAP. (2) Acute exacerbation of COPD with asthma Is this a current diagnosis for this admission?: Yes Plan: Problem #1. Denies history of COPD or asthma. Pulmonary consulted. (3) Morbid obesity with BMI of 45.0-49.9, adult Is this a current diagnosis for this admission?: Yes Plan: Advised on diet and lifestyle modification. (4) Tobacco use disorder, moderate, in early remission, dependence Is this a current diagnosis for this admission?: Yes Plan: Advised on smoking cessation. Start on nicotine replacement patch. (5) Anxiety Is this a current diagnosis for this admission?: Yes Plan: Patient sees psychiatry as an outpatient. Takes Xanax scheduled and as needed. Start home meds. (6) Depression Is this a current diagnosis for this admission?: No Plan: See psychiatry as an outpatient. Restart Celexa.
[2018-11-24] MEDS: ALPRAZOLAM 0.5 MG TABLET PO PRN ×2 (17:33→23:36)
[2018-11-24] MEDS: FLUTICASONE/SALMETEROL DISKUS 250-50 MCG/DOSE IH SCH (23:36)
[2018-11-25] MEDS: LEVALBUTEROL HCL NEB 1.25 MG/3 ML AMPUL NEB SCH ×3 (00:54→17:11)
[2018-11-25] MEDS: IPRATROPIUM BROMIDE 0.02% NEB 0.5 MG/2.5 ML AMPUL NEB SCH ×3 (00:54→17:11)
[2018-11-25] MEDS: METHYLPREDNISOLONE INJ 40 MG/1 ML SDV IV SCH ×3 (05:49→21:00)
[2018-11-25] MEDS: HEPARIN SOD (PORCINE) 5,000 UNIT/ML 1 ML SYRINGE SUBCUT SCH ×3 (05:49→21:01)
[2018-11-25 06:47] LABS: ABSOLUTE LYMPHOCYTES (AUTO) 2.1 10^3/uL (0.5-4.7); ABSOLUTE MONOCYTES (AUTO) 0.8 10^3/uL (0.1-1.4); ABSOLUTE NEUT (AUTO) 11.7 10^3/uL (1.7-8.2); BASOPHILS % (AUTO) 0.2 % (0-2); EOSINOPHILS % (AUTO) 0.1 % (0-6); HEMATOCRIT 38.6 % (36.0-47.0); LYMPHOCYTES % (AUTO) 14.6 % (13-45); MEAN CORPUSCULAR HEMOGLOBIN 30.4 pg (27.0-33.4); MEAN CORPUSCULAR HGB CONC 33.6 g/dL (32.0-36.0); MEAN CORPUSCULAR VOLUME 91 fl (80-97); MONOCYTES % (AUTO) 5.6 % (3-13); PLATELET COUNT 310 10^3/uL (150-450); RED BLOOD COUNT 4.27 10^6/uL (3.72-5.28); RED CELL DISTRIBUTION WIDTH 13.8 % (11.5-14.0); SEGMENTED NEUTROPHILS % (AUTO) 79.5 % (42-78); TOTAL CELLS COUNTED % (AUTO) 100 %; WHITE BLOOD COUNT 14.7 10^3/uL (4.0-10.5)
[2018-11-25 07:04] LABS: ANION GAP 7 (5-19); BLOOD UREA NITROGEN 13 mg/dL (7-20); CALCIUM 8.7 mg/dL (8.4-10.2); CARBON DIOXIDE 32 mmol/L (22-30); CHLORIDE 101 mmol/L (98-107); GLUCOSE 134 mg/dL (75-110); POTASSIUM 4.9 mmol/L (3.6-5.0); SODIUM 140.2 mmol/L (137-145)
[2018-11-25] MEDS: FLUTICASONE/SALMETEROL DISKUS 250-50 MCG/DOSE IH SCH ×2 (09:11→21:00)
[2018-11-25] MEDS: CITALOPRAM HYDROBROMIDE 20 MG TABLET PO SCH (09:12)
[2018-11-25] MEDS: GUAIFENESIN/D-METHORPHAN (200-20 MG) SYRUP 10 ML PO SCH ×4 (09:12→21:01)
[2018-11-25] MEDS: FAMOTIDINE 20 MG TABLET PO SCH ×2 (09:12→21:01)
[2018-11-25] MEDS: DOCUSATE SODIUM 100 MG CAPSULE PO SCH ×2 (09:12→17:44)
--- NOTE | 2018-11-25 09:27 | CONSULTATION REPORT E ---
Consultation Report NAME: ROSALINA ANN : 1985 AGE: 33Y DATE: 11/24/2018 ROOM: 429 A TO: TONI MCKNIGHT M.D. FROM: JIAN AGUILA M.D. Requesting Physician HISTORY OF PRESENT ILLNESS: The patient is a 33-year-old female who came in on November 22, 2018 for increasing shortness of breath and chest tightness. The patient claims that she has not been feeling well for the last 4 weeks and worsening for the last 2 to 3 days. She went to the emergency room and was eventually admitted. She had a CTA of the chest on admission showing a left rib fracture. The patient has 1 dog at home; no other pets. PAST MEDICAL HISTORY: Denies any blood clots, hypertension, or hyperlipidemia. Reports that she has asthma and COPD. No respiratory failure. She has a history of hypothyroidism and obesity. PAST SURGICAL HISTORY: section x2. SOCIAL HISTORY: Current every day smoker. MEDICATIONS: Home medications include hydrocodone, ibuprofen, prednisone, chlorpheniramine, and doxycycline. ALLERGIES: No known drug allergies. REVIEW OF SYSTEMS: CONSTITUTIONAL: No fever or chills. EYES: No jaundice, pallor, or eye pain. EARS: No hearing changes or ear pain. NOSE AND THROAT: No nasal discharge or nose bleeding. No sore throat. CARDIOVASCULAR: Complains of chest tightness and exertional dyspnea. No hyperlipidemia, orthopnea, heart attack, or cardiac arrhythmias. RESPIRATORY: Complains of cough, dyspnea, and wheezing. Denies any hemoptysis. GASTROINTESTINAL: No nausea, vomiting, or diarrhea. GENITOURINARY: No dysuria or hematuria. CENTRAL NERVOUS SYSTEM: No confusion, no seizures, no tremors. PHYSICAL EXAMINATION: GENERAL: The patient is awake, alert, coherent, oriented x3. VITAL SIGNS: Temperature is 98.6 with a T-max of 98.6. Blood pressure is 134/81, pulse rate 115, respiratory rate 16, saturation is 99% on 2 L nasal cannula. EYES: No jaundice or pallor. EARS, NOSE, AND THROAT: No ear drainage. No nasal discharge. CHEST AND LUNGS: Wheezing at right lung base. No coarse crackles or rhonchi noted. CARDIOVASCULAR: S1, S2 distinct. Regular rate and rhythm. ABDOMEN: Flabby. Positive bowel sounds. Soft, nondistended, and nontender. EXTREMITIES: No joint swelling. No cellulitis. LABORATORY: CBC done today showed a white count of 15.5, hemoglobin of 13.1, hematocrit 38.8, and platelet count 218. Chemistry done today showed sodium is 140, potassium 4.9, chloride 103, CO2 39, BUN 12, creatinine 0.66, glucose 133, calcium 8.7, and magnesium is 2.2. CT of the chest done on November 22, 2018 showed left 11th rib fracture, pneumothorax, no pulmonary embolism. Also showed some right upper lobe opacities and lingular opacities, nonspecific and may be related to an infectious process. ASSESSMENT: 1. Bronchial asthma acute exacerbation, currently improving but still wheezing in the right lung base. 2. Pulmonary opacities in both lungs, most likely due to inflammatory in nature; however, pneumonia could not be completely excluded. PLAN AND RECOMMENDATIONS: 1. We will start the patient on Advair 250/50 inhaler 1 puff b.i.d. starting today and to go home with Advair upon discharge. 2. May use albuterol inhaler 2 puffs 4 times a day as needed. The patient may use nebulizer treatment, albuterol and Atrovent, every 6 hours as needed for severe breakthrough exacerbations. 3. We will decrease the Solu-Medrol dose to 20 mg IV every 8 hours. May change to prednisone 10 mg daily for 3 or 4 more days after discharge. 4. Recommend Pulmonary Clinic followup 3 to 4 weeks after hospital discharge. DICTATING PHYSICIAN: TONI MCKNIGHT MD,BLANCA,MPH [id number] PHY#: [id number] ID: [id number] JOB#: [id number] ACCT: [id number] cc:TONI MCKNIGHT M.D. > MTDPatricia
--- NOTE | 2018-11-25 12:27 | PDOC PROGRESS REPORT ---
Subjective Progress Note for:: 11/25/18 Subjective:: ROSALINA ANN is a 33 year old female who presented to the emergency room with acute onset dyspnea. She admits that she awoke from a nap on the late afternoon of the date of admission with severe dyspnea and wheezing. She admits to the associated nonproductive cough and moderate to severe intermittent sharp pains in her anterior chest on both sides. She further admits that she has been having respiratory difficulty for the last month or so with wheezing and dyspnea as well as the same nonproductive cough and chest pains. She was treated in this emergency room for these symptoms about 2 weeks ago. She did have resolution of her symptoms and had been feeling well for the last 2 or 3 days prior to this episode. She denies any other prior similar episodes and has not identified any aggravating or ameliorating factors for her dyspnea though she does admit that she had been smoking until approximately 3 weeks ago when she could no longer smoke because it irritated her airway. In the emergency room she was found to be hypoxic and to have severe wheezing with decreased air movement on physical exam. She was noted to be mildly hypercapnic on an initial venous blood gas. Her chest x-ray showed no acute pathology however she was noted to have an acute fracture of her left 11th rib on CTA evaluation. Because of her persistent hypoxia despite treatment in the emergency room she was admitted for further care. 11/23/2018. Patient is stating she is feeling better since admission however she gets short of breath when she exerts herself. She still having pleuritic chest pain stating that 3 weeks ago she had a hip fracture due to excessive coughing. She denies having any fever, chills, nausea, vomiting, diarrhea or constipation. She is a heavy smoker has been smoking for the last 3 years. 11/24/2018. No acute events overnight. Patient has been saturating 97% on 2 L FiO2 28%. Overnight. Vitals have been within normal. CMP within normal limits except for WBC of 15.5 from 8.3 which could be secondary to IV steroids that she is receiving. Chest pain, shortness of breath and congestion has improved significantly since admission. Denies having any nausea, vomiting, diarrhea, constipation or any urinary symptoms. 11/25/2018. No acute events overnight. Stating that she is feeling much better. Was able to sleep overnight. Denying any fever, chills, nausea, vomiting, diarrhea, constipation. She is p.o. tolerant, ambulatory and having normal bladder bowel movements. She was seen by fur dry cleaner hand and recommendation has been made. CBC positive for mild leukocytosis, no bandemia CMP unremarkable except for mild hyperglycemia likely due to steroids that she is receiving. Patient TSH of 12.5, free T4 of 0.4. which could be due to either underlying hypothyroidism or due to acute illness. Patient will be advised to follow-up with PCP for recheck of her thyroid function test. On physical examination patient does not seem to be in acute distress but is still has significant diffuse expiratory wheezes on pulmonary examination. Reason For Visit: ACUTE EXACERBATION OF COPD WITH ACUTE HYPOXIC Physical Exam Vital Signs: Temp Pulse Resp BP Pulse Ox 97.9 F 98 16 119/88 H 96 11/25/18 07:56 11/25/18 08:42 11/25/18 08:42 11/25/18 07:56 11/25/18 08:42 Intake & Output 11/24/18 11/25/18 11/26/18 06:59 06:59 06:59 Intake Total 266 1362 Balance 266 1362 Weight 141.8 kg 141.6 kg General appearance: PRESENT: no acute distress, morbidly obese, well-developed, well-nourished Head exam: PRESENT: atraumatic, normocephalic Respiratory exam: PRESENT: prolonged expiratory phas, wheezes Cardiovascular exam: PRESENT: RRR. ABSENT: diastolic murmur, rubs, systolic murmur GI/Abdominal exam: PRESENT: normal bowel sounds, soft. ABSENT: distended, guarding, mass, organolmegaly, rebound, tenderness Neurological exam: PRESENT: alert, awake, oriented to person, oriented to place, oriented to time, oriented to situation, CN II-XII grossly intact. ABSENT: motor sensory deficit Results Laboratory Results: 11/25/18 06:04 11/25/18 06:04 11/25/18 11/25/18 06:04 06:04 WBC 14.7 H RBC 4.27 Hgb 13.0 Hct 38.6 MCV 91 MCH 30.4 MCHC 33.6 RDW 13.8 Plt Count 310 Seg Neutrophils % 79.5 H Lymphocytes % 14.6 Monocytes % 5.6 Eosinophils % 0.1 Basophils % 0.2 Absolute Neutrophils 11.7 H Absolute Lymphocytes 2.1 Absolute Monocytes 0.8 Absolute Eosinophils 0.0 Absolute Basophils 0.0 Sodium 140.2 Potassium 4.9 Chloride 101 Carbon Dioxide 32 H Anion Gap 7 BUN 13 Creatinine 0.65 Est GFR ( Amer) > 60 Est GFR (Non-Af Amer) > 60 Glucose 134 H Calcium 8.7 Magnesium 2.2 11/22/18 11/22/18 18:30 18:30 Creatine Kinase 39 Troponin I < 0.012 NT-Pro-B Natriuret Pep 21 Impressions: Chest X-Ray 11/22/18 00:00 IMPRESSION: NO ACUTE RADIOGRAPHIC FINDING IN THE CHEST. Chest/Abdomen CTA 11/22/18 21:09 IMPRESSION: Left 11th rib fracture. No pneumothorax. No pulmonary embolism. Assessment & Plan - Diagnosis (1) Acute respiratory failure with hypoxia and hypercapnia Is this a current diagnosis for this admission?: Yes Plan: Improving. Secondary to COPD/asthma exacerbation. Saturating 97% on 2 L FiO2 28%. Continue supplemental oxygen, nebs, IV steroids, as needed BiPAP. (2) Acute exacerbation of COPD with asthma Is this a current diagnosis for this admission?: Yes Plan: Problem #1. Denies history of COPD or asthma. Pulmonary on board. Recommendations noted. Outpatient pulmonary follow-up. (3) Morbid obesity with BMI of 45.0-49.9, adult Is this a current diagnosis for this admission?: Yes Plan: Advised on diet and lifestyle modification. Patient does have abnormal thyroid studies on admission which could either be underlying hypothyroidism or abnormal thyroid function tests due to acute illness. She will benefit from outpatient follow-up with PCP to be evaluated for underlying thyroid disease. (4) Tobacco use disorder, moderate, in early remission, dependence Is this a current diagnosis for this admission?: Yes Plan: Advised on smoking cessation. Start on nicotine replacement patch. (5) Anxiety Is this a current diagnosis for this admission?: Yes Plan: Patient sees psychiatry as an outpatient. Takes Xanax scheduled and as needed. Start home meds. (6) Depression Is this a current diagnosis for this admission?: No Plan: Sees psychiatry as an outpatient. Restart Celexa. (7) Thyroid function test abnormal Is this a current diagnosis for this admission?: Yes Plan: Denies any history of thyroid disease. Negative physical examination for any thyroid abnormalities. On admission TSH was 12.5, T4 0.4, T3 2.32. Likely euth yroid sick syndrome or underlying thyroid disorder. Will repeat labs. Likely due to acute illness or underlying hypothyroidism. Outpatient follow-up with PCP for evaluation of thyroid function.
[2018-11-25] MEDS: ALPRAZOLAM 0.5 MG TABLET PO PRN ×2 (12:59→19:13)
[2018-11-26] MEDS: IPRATROPIUM BROMIDE 0.02% NEB 0.5 MG/2.5 ML AMPUL NEB SCH ×3 (01:08→16:31)
[2018-11-26] MEDS: LEVALBUTEROL HCL NEB 1.25 MG/3 ML AMPUL NEB SCH ×3 (01:08→16:31)
[2018-11-26] MEDS: METHYLPREDNISOLONE INJ 40 MG/1 ML SDV IV SCH ×2 (06:08→15:11)
[2018-11-26] MEDS: HEPARIN SOD (PORCINE) 5,000 UNIT/ML 1 ML SYRINGE SUBCUT SCH ×2 (06:08→15:10)
[2018-11-26 07:21] LABS: ABSOLUTE LYMPHOCYTES (AUTO) 2.2 10^3/uL (0.5-4.7); ABSOLUTE MONOCYTES (AUTO) 0.7 10^3/uL (0.1-1.4); ABSOLUTE NEUT (AUTO) 11.9 10^3/uL (1.7-8.2); BASOPHILS % (AUTO) 0.3 % (0-2); EOSINOPHILS % (AUTO) 0.1 % (0-6); HEMATOCRIT 40.7 % (36.0-47.0); HEMOGLOBIN 13.7 g/dL (12.0-15.5); LYMPHOCYTES % (AUTO) 14.6 % (13-45); MEAN CORPUSCULAR HEMOGLOBIN 30.3 pg (27.0-33.4); MEAN CORPUSCULAR HGB CONC 33.7 g/dL (32.0-36.0); MEAN CORPUSCULAR VOLUME 90 fl (80-97); MONOCYTES % (AUTO) 4.9 % (3-13); PLATELET COUNT 319 10^3/uL (150-450); RED BLOOD COUNT 4.51 10^6/uL (3.72-5.28); RED CELL DISTRIBUTION WIDTH 13.5 % (11.5-14.0); SEGMENTED NEUTROPHILS % (AUTO) 80.1 % (42-78); TOTAL CELLS COUNTED % (AUTO) 100 %; WHITE BLOOD COUNT 14.8 10^3/uL (4.0-10.5)
[2018-11-26] MEDS: ALPRAZOLAM 0.5 MG TABLET PO PRN ×2 (08:26→17:09)
[2018-11-26] MEDS: GUAIFENESIN/D-METHORPHAN (200-20 MG) SYRUP 10 ML PO SCH ×2 (09:26→14:04)
[2018-11-26] MEDS: FLUTICASONE/SALMETEROL DISKUS 250-50 MCG/DOSE IH SCH (09:26)
[2018-11-26] MEDS: DOCUSATE SODIUM 100 MG CAPSULE PO SCH (09:27)
[2018-11-26] MEDS: FAMOTIDINE 20 MG TABLET PO SCH (09:27)
[2018-11-26] MEDS: CITALOPRAM HYDROBROMIDE 20 MG TABLET PO SCH (09:27)
[2018-11-26] MEDS ORDERED: AMLODIPINE BESYLATE 2.5 MG TABLET PO SCH (10:00)
[2018-11-26] MEDS ORDERED: CARVEDILOL 6.25 MG TABLET PO SCH (14:00)
[2018-11-26 16:06] VITALS: BP 136/100
[2018-11-26] MEDS ORDERED: AMLODIPINE BESYLATE 2.5 MG TABLET PO ONE ×2 (16:45→17:30)
== END 2018-11-26 19:30 | disposition home or self-care (01) | DRG 190 ==
LOC: ER 18:03 → EH 23:44 → 4S 11-23 21:32
PROVIDERS: ADMIT Emergency Medicine; ATTEND Emergency Medicine
PROC: 5A09357 Assistance with Respiratory Ventilation, Less than 24 Consecutive Hours, Continuous Positive Airway Pressure (ICD-10-PCS; principal; 2018-11-23)
PROC: 3E0F73Z Introduction of Anti-inflammatory into Respiratory Tract, Via Natural or Artificial Opening (ICD-10-PCS; 2018-11-23)
DX: J44.1 Chronic obstructive pulmonary disease with (acute) exacerbation (principal); J96.01 Acute respiratory failure with hypoxia; J96.02 Acute respiratory failure with hypercapnia; Z68.42 Body mass index [BMI] 45.0-49.9, adult; E03.9 Hypothyroidism, unspecified; F32.9 Major depressive disorder, single episode, unspecified; E66.01 Morbid (severe) obesity due to excess calories; F41.9 Anxiety disorder, unspecified; F17.210 Nicotine dependence, cigarettes, uncomplicated; Z79.899 Other long term (current) drug therapy; Z87.891 Personal history of nicotine dependence; Z83.6 Family history of other diseases of the respiratory system; Z83.3 Family history of diabetes mellitus; Z80.9 Family history of malignant neoplasm, unspecified; Z80.8 Family history of malignant neoplasm of other organs or systems; Z84.1 Family history of disorders of kidney and ureter; Z82.49 Family history of ischemic heart disease and other diseases of the circulatory system
CPT/HCPCS: 36415; 71045; 71275; 80048; 80053; 80061; 82550; 82803; 83605; 83735; 83880; 84439; 84443; 84481; 84484; 85025; 93005; 93010; 94640; 96361; 96365; 99285; J1644; J2300; J2920; J3475; J3490; J7030; J7620